=== PATIENT | female | born 1945 | race Caucasian/White ===

== ENCOUNTER → 2021-02-13 | Day surgery (SDC) | payer OTHER ==
[~2021-02-13] VITALS: Ht 172.7 cm; Wt 73.9 kg
[~2021-02-13] MED LIST: FLUOXETINE HCL10 MG PO; LIPITOR10 MG PO; ZYRTEC10 MG PO
[2021-02-13 08:43] LABS: HCT 40.9 % (37.0-47.0); HGB 13.5 g/dl (12.5-16.0); MCH 29.5 pg (25.0-31.0); MCV 89.3 fL (78.0-100.0); MPV 9.2 fL (6.0-9.5); RBC 4.58 M/uL (4.20-5.40); RDW 12.1 % (11.5-14.0)
[2021-02-13 08:48] LABS: BILIRUBIN - TOTAL 0.6 mg/dL (0.2-1.0); BUN/CREAT RATIO (CALC) 27.9 RATIO; CREATININE 0.61 mg/dL (0.51-0.95); GLOBULIN (CALCULATION) 3.5 g/dL; POTASSIUM 3.8 mmol/L (3.5-5.1); TOTAL PROTEIN 7.5 g/dL (6.4-8.2)
== END | disposition home or self-care (01) ==
LOC: FAS 07:55
PROVIDERS: Surgery
DX: Z12.11 Encounter for screening for malignant neoplasm of colon (principal); E78.00 Pure hypercholesterolemia, unspecified; Z80.0 Family history of malignant neoplasm of digestive organs; Z79.899 Other long term (current) drug therapy
CPT/HCPCS: 36415; 80053; J1610; J2704; J7120